=== PATIENT | female | born 1990 | race Caucasian/White ===

== ENCOUNTER 2017-09-20 20:43 | Emergency (ER) | payer SELFPAY ==
[2017-09-20] MEDS ORDERED: Ketorolac Tromethamine 30 MG/ML VIAL ONE (21:15)
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
== END 2017-09-20 21:52 | disposition home or self-care (01) ==
LOC: ERS 20:43
DX: S39.012A Strain of muscle, fascia and tendon of lower back, initial encounter (principal); V43.52XA Car driver injured in collision with other type car in traffic accident, initial encounter
CPT/HCPCS: 72100; 96372; J1885

== ENCOUNTER 2024-03-30 11:26 | Inpatient (IN) | payer BC ==
[2024-03-30 12:27] LABS: #Basophils Less than 0.03 10x3/uL (0.0-0.2); %Basophils 0.1 % (0.0-1.0); %Eosinophils 1.8 % (0.0-10.0); %Lymphocytes 13.5 % (21.0-51.0); %Monocytes 4.7 % (0.0-10.0); %Neutrophils 79.3 % (42.0-75.0); Mean Corpuscular HGB CONC 32.6 g/dL (32.0-36.0); Mean Corpuscular Hemoglobin 26.7 pg (27.0-31.0); Mean Corpuscular Volume 82.1 fL (78.0-98.0); Platelet Count 382 10x3/uL (130-400); RBC Distribution Width 13.6 % (11.5-14.5); Red Blood Cell (RBC) Count 5.24 mill/uL (4.20-5.40)
[2024-03-30 12:44] LABS: BHCG - Serum Negative (NEGATIVE); Pregs Control Background? CLEAR/WHITE (CLR/WHITE); Pregs Control Bar Appear? YES (CONTROL BAR)
[2024-03-30 12:53] LABS: ALT (SGPT) 96 U/L (8-55); AST (SGOT) 54 U/L (5-34); Albumin 3.6 g/dL (3.5-5.0); Alkaline Phosphatase 108 U/L (40-110); Anion Gap 17 mmol/L (10-20); BUN (Urea Nitrogen) 5 mg/dL (7.0-18.7); Bilirubin, Total 0.6 mg/dL (0.2-1.2); Calc. Creatinine Clearance 0 mL/min (70-130); Calcium 9.4 mg/dL (7.8-10.44); Carbon Dioxide 20 mmol/L (22-29); Chloride 106 mmol/L (98-107); Estimated GFR 108; Globulin 4.5 g/dL (2.4-3.5); Glucose 111 mg/dL (70-105); Potassium 3.8 mmol/L (3.5-5.1); Protein, Total 8.1 g/dL (6.0-8.3); Sodium 139 mmol/L (136-145)
[2024-03-30 12:56] LABS: Troponin I Less than 0.010 ng/mL (< 0.028)
[2024-03-30] MEDS ORDERED: cefTRIAXone (ROCEPHIN) 2 GM VIAL ONE (13:09)
[2024-03-30] MEDS ORDERED: Sodium Chloride 0.9% 100 ML ONE (13:10)
[2024-03-30 13:37] LABS: Bilirubin Negative (Negative); Blood, Urine Negative (Negative); Clarity Clear (Clear); Glucose, Urine (Dipstick) Normal (Negative); Ketone, Urine Negative (Negative); Leukocyte Negative Leu/uL (Negative); Nitrite Negative (Negative); Protein, Urine (Dipstick) Negative (Neg-Trace); Specific Gravity, Urine 1.015 (1.002-1.036); pH, Urine 6.5 (5.0-9.0)
[2024-03-30] MEDS ORDERED: Azithromycin 500 MG VIAL ONE (13:44)
[2024-03-30 14:09] LABS: Bacteria/HPF Rare-Few HPF (None Seen); CAUTI Indications for Culture Immunosuppressed; RBC/HPF 0-3 HPF (0-3); Squamous Epithelial 0-3 HPF (0-3); WBC/HPF 0-3 HPF (0-3)
[2024-03-30 14:10] LABS: Urine Culture Reflex Yes Yes
[2024-03-30 14:16] LABS: Influenza A by NAA Not Detected (NotDetected); Influenza B by NAA Not Detected (NotDetected); SARS-CoV-2 NAA Rapid Test Not Detected (NotDetected)
[2024-03-30] MEDS ORDERED: Ipratropium/Albuterol 3 ML NEB NEB PRN (17:16)
[2024-03-30] MEDS ORDERED: Senokot S 8.6-50 MG TAB PO PRN (17:40)
[2024-03-30] MEDS ORDERED: Calcium Carbonate 500 MG ChewTAB PO PRN (17:40)
[2024-03-30 17:41] VITALS: BMI 45.8
[2024-03-30] MEDS ORDERED: Benzocaine/Menthol 1 LOZ LOZ PO PRN (17:42)
[2024-03-30] MEDS: cefTRIAXone\\ROCEPHIN 2 GM in Sodium Chloride 0.9% 100 ML IVPB SCH (18:15)
[2024-03-30] MEDS: Sodium Chloride 0.9% 1,000 ML IV SCH (18:15)
[2024-03-30] MEDS: Azithromycin 500 MG in Sodium Chloride 0.9% 250 ML 250 ML IVPB SCH (18:16)
[2024-03-30 19:03] LABS: Legionella Urinary Ag Negative (Negative); Strep pneumo Urine Ag NEGATIVE (NEGATIVE)
[2024-03-30] MEDS: Budesonide 0.5 MG/2 ML NEB INH SCH (19:03)
[2024-03-30] MEDS: Ipratropium/Albuterol 3 ML NEB NEB SCH (19:03)
[2024-03-30] MEDS: Acetaminophen 325 MG TAB PO PRN (21:12)
[2024-03-30] MEDS: Famotidine 20 MG TAB PO SCH (21:13)
[2024-03-30] MEDS: guaiFENesin ER 600 MG TAB PO SCH (21:13)
[2024-03-31] MEDS: Ondansetron PF 4 MG/2 ML Vial IVP PRN (06:51)
[2024-03-31 07:33] LABS: #Basophils Less than 0.03 10x3/uL (0.0-0.2); %Basophils 0.3 % (0.0-1.0); %Eosinophils 3.6 % (0.0-10.0); %Lymphocytes 23.3 % (21.0-51.0); %Monocytes 8.6 % (0.0-10.0); %Neutrophils 63.6 % (42.0-75.0); Hematocrit 36.6 % (36.0-47.0); Hemoglobin 11.7 g/dL (12.0-16.0); Mean Corpuscular Hemoglobin 26.4 pg (27.0-31.0); Mean Corpuscular Volume 82.4 fL (78.0-98.0); Mean Platelet Volume 9.1 fL (7.4-10.4); Platelet Count 311 10x3/uL (130-400); RBC Distribution Width 13.6 % (11.5-14.5); Red Blood Cell (RBC) Count 4.44 mill/uL (4.20-5.40)
[2024-03-31 07:47] LABS: ALT (SGPT) 75 U/L (8-55); AST (SGOT) 39 U/L (5-34); Albumin 2.8 g/dL (3.5-5.0); Alkaline Phosphatase 85 U/L (40-110); Anion Gap 10 mmol/L (10-20); BUN (Urea Nitrogen) 4 mg/dL (7.0-18.7); Bilirubin, Total 0.4 mg/dL (0.2-1.2); Calc. Creatinine Clearance 256 mL/min (70-130); Calcium 8.4 mg/dL (7.8-10.44); Carbon Dioxide 24 mmol/L (22-29); Chloride 111 mmol/L (98-107); Estimated GFR 118; Globulin 3.6 g/dL (2.4-3.5); Glucose 91 mg/dL (70-105); Potassium 3.9 mmol/L (3.5-5.1); Protein, Total 6.4 g/dL (6.0-8.3); Sodium 141 mmol/L (136-145)
[2024-03-31] MEDS: Enoxaparin 40 MG (0.4 mL) SYRINGE SC SCH (08:38)
[2024-03-31] MEDS: HYDROcodone/Acetaminophen 10/325 mg Tablet PO SCH (20:17)
[2024-03-31 21:54] LABS: Troponin I Less than 0.010 ng/mL (< 0.028)
[2024-04-02 09:23] LABS: #Basophils Less than 0.03 10x3/uL (0.0-0.2); %Basophils 0.2 % (0.0-1.0); %Eosinophils 2.7 % (0.0-10.0); %Lymphocytes 22.7 % (21.0-51.0); %Monocytes 4.8 % (0.0-10.0); %Neutrophils 68.8 % (42.0-75.0); Hematocrit 40.4 % (36.0-47.0); Hemoglobin 13.1 g/dL (12.0-16.0); Mean Corpuscular HGB CONC 32.4 g/dL (32.0-36.0); Mean Corpuscular Hemoglobin 26.4 pg (27.0-31.0); Mean Corpuscular Volume 81.3 fL (78.0-98.0); Mean Platelet Volume 10.4 fL (7.4-10.4); Platelet Count 167 10x3/uL (130-400); RBC Distribution Width 13.4 % (11.5-14.5); Red Blood Cell (RBC) Count 4.97 mill/uL (4.20-5.40)
[2024-04-02 09:46] LABS: Anion Gap 15 mmol/L (10-20); BUN (Urea Nitrogen) 6 mg/dL (7.0-18.7); Calc. Creatinine Clearance 249 mL/min (70-130); Calcium 9.1 mg/dL (7.8-10.44); Carbon Dioxide 22 mmol/L (22-29); Chloride 108 mmol/L (98-107); Estimated GFR 114; Glucose 115 mg/dL (70-105); Potassium 3.7 mmol/L (3.5-5.1); Sodium 141 mmol/L (136-145)
[2024-04-03 08:32] VITALS: BP 112/70; TEMP 97.9
== END 2024-04-03 14:07 | disposition home or self-care (01) | DRG 871 ==
LOC: ERS 11:26 → T4-B 17:29 → OBSVTOIN 03-31 15:37
PROVIDERS: ADMIT Internal Medicine; ATTEND Internal Medicine
DX: A41.50 Gram-negative sepsis, unspecified (principal); J15.69 Pneumonia due to other Gram-negative bacteria; J96.01 Acute respiratory failure with hypoxia; Z68.42 Body mass index [BMI] 45.0-49.9, adult; E66.9 Obesity, unspecified; Z79.899 Other long term (current) drug therapy; Z98.890 Other specified postprocedural states; Z83.3 Family history of diabetes mellitus
CPT/HCPCS: 36415; 36416; 71045; 71046; 80048; 80053; 81001; 83605; 83880; 84145; 84484; 84703; 85025; 87040; 87081; 87086; 87430; 87449; 87633; 87899; 93005; 94640; 96365; 96367; 96375; 96376; G0378; J0456; J0696; J2405; J7030; J7050; J7620; J7626